=== PATIENT | female | born 1990 | race African-American/Black ===

== ENCOUNTER 2019-03-24 08:32 | Emergency (ER) | payer OTHER ==
[~2019-03-24] VITALS: Ht 167.6 cm; Wt 72.6 kg
[~2019-03-24 08:32] MED LIST: BACTRIM DS TAB1 EACH PO; DEPO-ESTRAD5 MG/1 ML
[2019-03-24 09:11] LABS: ABSOLUTE NEUTROPHILS 5.4 thou/uL (1.4-8.2); BASOPHILS 0.5 % (0.0-2.0); EOSINOPHILS 2.2 % (0.0-3.0); HEMATOCRIT 40.2 % (37.0-47.0); HEMOGLOBIN 13.1 gm/dL (12.0-15.0); LYMPHOCYTES 17.5 % (24.0-44.0); MCH 30.5 pg (26.0-34.0); MCHC 32.5 g/dL (28.0-37.0); MCV 94.1 fL (80.0-100.0); MONOCYTES 6.8 % (1.0-8.0); PLATELET COUNT 135 thou/uL (150-400); RBC 4.27 mil/uL (4.20-5.00); RDW 13.6 % (10.5-14.5); WBC 7.4 thou/uL (4.0-11.0)
[2019-03-24 09:21] LABS: CALCIUM 8.7 mg/dL (8.5-10.1); CREATININE 0.8 mg/dL (0.6-1.0); POTASSIUM 3.9 mmol/L (3.5-5.1)
[2019-03-24] MEDS ORDERED: IBUPROFEN 800800 M1 PO (12:56)
[2019-03-24 13:30] VITALS: BP 101/69
== END 2019-03-24 13:30 | disposition home or self-care (01) ==
LOC: ER 08:32
PROVIDERS: Emergency Medicine
DX: S63.282A Dislocation of proximal interphalangeal joint of right middle finger, initial encounter (principal); S61.213A Laceration without foreign body of left middle finger without damage to nail, initial encounter; F17.210 Nicotine dependence, cigarettes, uncomplicated; W25.XXXA Contact with sharp glass, initial encounter; Y92.89 Other specified places as the place of occurrence of the external cause; Y93.89 Activity, other specified; Y99.8 Other external cause status

== ENCOUNTER 2019-03-26 11:35 | Emergency (ER) | payer OTHER ==
[~2019-03-26] VITALS: Ht 170.2 cm; Wt 72.6 kg
[~2019-03-26 11:35] MED LIST changes: +IBUPROFEN 800800 M1 PO
[2019-03-26] MEDS ORDERED: TRAMADOL 50 MG50 MG PO (14:31)
[2019-03-26] MEDS ORDERED: KEFLEX500 M1 PO (14:31)
[2019-03-26] MEDS ORDERED: NAPROSYN500 MG PO (14:31)
[2019-03-26 15:52] VITALS: BP 107/55
== END 2019-03-26 15:52 | disposition home or self-care (01) ==
LOC: ER 11:35
DX: S63.282A Dislocation of proximal interphalangeal joint of right middle finger, initial encounter (principal); F17.210 Nicotine dependence, cigarettes, uncomplicated; W25.XXXA Contact with sharp glass, initial encounter; Y92.89 Other specified places as the place of occurrence of the external cause; Y93.89 Activity, other specified; Y99.8 Other external cause status

== ENCOUNTER 2019-04-18 12:30 | Day surgery (SDC) | payer OTHER ==
[~2019-04-18] VITALS: Ht 170.2 cm; Wt 73.5 kg
--- NOTE | ~2019-04-18 | O ---
[facility] [place] [address] OPERATIVE REPORT Name: VALERIA JUAN Room #: 150-1 [facility] M.R.#: [id number] Admission: 04/18/19 Attend Phys: Violet Reyes, Discharge: Date of : 89 Report #: [id number] THIS REPORT FOR: //name// CC: PIERRE physician/PCP Violet Reyes DATE OF SERVICE: 04/18/2019 PREOPERATIVE DIAGNOSIS: Right long finger possible foreign bodies, possible zone 3 extensor tendon transection or avulsion. POSTOPERATIVE DIAGNOSIS: Right long finger possible foreign body with intact extensor tendon. PROCEDURE PERFORMED: Right long finger exploration and debridement. SURGEON: Violet Reyes MD ANESTHESIA: General mask anesthesia. ESTIMATED BLOOD LOSS: 2 mL. TOURNIQUET TIME: 22 minutes. COMPLICATIONS: None. CONDITION: Stable. DISPOSITION: Recovery room. INDICATIONS: The patient is a 28-year-old female with the above-mentioned diagnosis. She sustained a volar dislocation of the PIP joint and cut her finger with a sharp glass. X-ray showed possible foreign body in the dorsal aspect of her very large long eschar. Informed consent was obtained. The correct extremity was identified and labeled by myself after verbal confirmation of the patient as well as visual confirmation and signed informed consent. The main risks discussed were stiffness. We discussed joint will not move normally, but should be functional, infection, damage to vessels or nerves, tendon, not healing appropriately or hardware problems if hardware was utilized. Informed consent was obtained. DESCRIPTION OF PROCEDURE: The patient was brought to the operating room and placed in a supine position. She received preoperative antibiotics. Tourniquet was placed over padding. The right upper extremity was sterilely prepped and draped in the usual fashion. Final timeout was taken to verify correct patient, operative procedure, operative site, all concurred. The arm was elevated, [facility] [address] [place] [address] OPERATIVE REPORT Name: VALERIA JUAN Room #: 150-1 [facility]..#: [id number] Admission: 04/18/19 Attend Phys: Violet Reyes, Discharge: Date of : 89 Report #: [id number] exsanguinated and tourniquet inflated. The sutures were removed. The thick eschar was removed and this was along the dorsal ulnar side of the long finger. The fluoroscopy was brought in at this point, which showed absence of any radiopaque densities. The wound was opened. It was extended both proximally and distally for approximately a centimeter in order to facilitate exposure of the extensor tendon. The extensor tendon was carefully evaluated. There was a dorsal radial laceration in the capsule that occurred from the dorsal wound and the extensor tendon was intact all the way to its insertion. The area was then thoroughly irrigated. The skin was closed with 4-0 nylon suture. The wound was dressed with Adaptic and sterile gauze. She was placed in a bulky dressing and a volar slab splint. Of note, I was able to fully extend the finger and fully flex the finger PIP joint with tenodesis. She had near complete extension. All fingers were pink with brisk capillary refill at the conclusion of case after deflation of tourniquet. All sponge and needle counts were correct. The patient was transferred to postoperative recovery room in stable condition. By: [id number] Violet Reyes MD /nt
[~2019-04-18 12:30] MED LIST changes: +KEFLEX500 M1 PO; +NAPROSYN500 MG PO; +TRAMADOL 50 MG50 MG PO
[2019-04-18 13:33] VITALS: BP 102/69
[2019-04-18 16:05] VITALS: BP 102/69
== END 2019-04-18 16:50 | disposition home or self-care (01) ==
LOC: OR 12:30 → TBA 13:32 → OR 13:57
DX: S61.222A Laceration with foreign body of right middle finger without damage to nail, initial encounter (principal); F17.210 Nicotine dependence, cigarettes, uncomplicated; Z98.890 Other specified postprocedural states; Z79.899 Other long term (current) drug therapy; W25.XXXA Contact with sharp glass, initial encounter; Y93.89 Activity, other specified; Y92.89 Other specified places as the place of occurrence of the external cause; Y99.8 Other external cause status
CPT/HCPCS: 50010; 50101; 50386; 56526; 57006; 57091; 57178; 62110; 62900; 70005